=== PATIENT | male | born 1940 | race Caucasian/White ===

== ENCOUNTER → 2016-12-30 | Outpatient (CLI) | payer MEDICARE, OTHER ==
[~2016-12-30] MED LIST: LISI-594 PO
== END ==
LOC: CARD 08:04
PROVIDERS: ATTEND Internal Medicine Interventional Cardiology
DX: I10 Essential (primary) hypertension (principal); R07.9 Chest pain, unspecified

== ENCOUNTER → 2017-01-03 | Outpatient (CLI) | payer MEDICARE, OTHER ==
[~2017-01-03] VITALS: Ht 188 cm; Wt 92.5 kg
[~2017-01-03] MED LIST changes: +CATHETER FLUSH 10 ML SYR IV PRN; +REGADENOSON 0.4 MG/5 ML SYR (LEXISCAN) IV ONE
[2017-01-03 08:42] VITALS: BP 165/102
== END ==
LOC: CARD 06:37
PROVIDERS: ATTEND Internal Medicine Interventional Cardiology
DX: R07.9 Chest pain, unspecified (principal); I10 Essential (primary) hypertension
CPT/HCPCS: 78452; 93017

== ENCOUNTER → 2017-05-10 | Outpatient (CLI) | payer MEDICARE, OTHER ==
[~2017-05-10] MED LIST changes: +IOHEXOL 350 MG/ML 150 ML (OMNIPAQUE 350) VIAL IV ONE; +NS 250 ML (IVPB) BAG IV ONE; -REGADENOSON 0.4 MG/5 ML SYR (LEXISCAN) IV ONE
[2017-05-10 09:16] LABS: BUN/CREATININE RATIO 18; CREATININE SERUM 0.85 MG/DL (0.60-1.30); GFR ESTIMATED > 60
--- NOTE | 2017-05-10 10:20 | Diagnostic Imaging Report ---
PROCEDURE: CT angiography of the chest with contrast. TECHNIQUE: Multiple contiguous axial images were obtained through the chest after uneventful bolus administration of intravenous contrast. Reconstructed CTA MIP acquisitions were also performed. INDICATION: History of dilated aortic root. COMPARISON: None. FINDINGS: Ascending aorta measures at the upper limits of normal at 3.9 x 3.6 cm in diameter at the level of the pulmonary arteries. The descending thoracic aorta measures 3.2 x 3.1 cm. Main pulmonary arterial trunk measures 2.6 cm. There is no evidence of dissection or focal stenosis of the thoracic aorta. There is mild calcified aortic and coronary atherosclerosis. Heart size is within normal limits. There is no large pericardial effusion. There is a small hiatal hernia. Slightly prominent 1.2 cm lymph node is identified to the left lateral of the distal esophagus near the diaphragmatic hiatus. Otherwise, no abnormal mediastinal, perihilar, nor axillary adenopathy is seen. Evaluation of lung windows demonstrates small benign calcified granuloma within the lingula of the left upper lobe (image 123, series 2). A few punctate similar-appearing benign subpleural calcified granulomas are also noted within the right upper lobe. Noncalcified micronodules are also present on the right and are as follows: * anterior margins of the minor fissure measuring approximately 6-7 mm (image 92, series 2). * Subpleural 4 mm micronodules within the lateral segment of the right middle lobe (image 110, series 2). * 5-6 mm micronodules within the right lung base (image 127, series 2). * Finally, 5 mm juxtapleural micronodule within the medial margins of the right upper lobe (image 37, series 2). Bony structures show age-related degenerative changes of thoracic spine. No acute osseous abnormalities are identified. No lytic or blastic bony lesions are seen. Included portions of the upper abdomen are unremarkable. IMPRESSION: 1. Ascending aorta measures at the upper limits of normal. 2. Mild calcified aortic and coronary atherosclerosis. 3. Multiple right-sided pulmonary micronodules. Please see below for followup recommendations. 4. Single borderline prominent paraesophageal lymph node at the diaphragmatic hiatus. Again, followup is recommended. PULMONARY NODULE FOLLOW-UP Multiple nodules: <6 mm: * Low risk patient - no routine follow up * High risk patient - optional CT at 12 months 6-8 mm in size: * Low risk patient - Ct at 3-6 months, then consider CT at 18-24 months * High risk patient - CT at 3-6 months, then at 18-24 months >8 mm: * Low risk patient - CT at 3-6 months, then consider CT at 18-24 months * High risk patient - CT at 3-6 months, then at 18-24 months (Use most suspicious nodule as guide to management. Follow up interval may vary according to size and risk) Dictated by: Dictated on workstation # [id number]
== END ==
LOC: RAD 08:35
PROVIDERS: ATTEND Internal Medicine Interventional Cardiology
DX: I70.0 Atherosclerosis of aorta (principal); I25.10 Atherosclerotic heart disease of native coronary artery without angina pectoris; R91.8 Other nonspecific abnormal finding of lung field; Z86.79 Personal history of other diseases of the circulatory system
CPT/HCPCS: 36415; 71275; 82565; 84520

== ENCOUNTER → 2017-11-23 | Outpatient (CLI) | payer MEDICARE, OTHER ==
[~2017-11-23] MED LIST changes: -CATHETER FLUSH 10 ML SYR IV PRN; +NS 100 ML (IVPB) BAG IV ONE
[2017-11-23 10:47] LABS: BUN/CREATININE RATIO 19; CREATININE SERUM 0.88 MG/DL (0.60-1.30); GFR ESTIMATED > 60
--- NOTE | 2017-11-24 08:33 | Diagnostic Imaging Report ---
PROCEDURE: CT angiography of the chest with and without contrast. TECHNIQUE: Noncontrast CT of the chest was performed. Subsequently, after intravenous administration of contrast, thin section axial CT angiography of the chest was performed. 2D MIP reconstructions were made. INDICATION: Pulmonary nodules. Dilated aortic root. CORRELATION STUDY: 05/10/2017. FINDINGS: Thoracic aorta appears relatively unremarkable. Measurements as follows: Maximum ascending aorta: 4.1 x 3.6 cm, previously 3.9 x 3.6 cm. Descending thoracic aorta, level left main pulmonary artery: 3.3 x 3.3 cm, previously 3.2 x 3.1 cm. Main pulmonary artery: 2.7 cm, previously 2.6 cm. No intraluminal abnormality to suggest dissection. Heart size is normal. Mild scattered coronary artery calcification. No pathologically enlarged mediastinal and/or hilar lymphadenopathy. EG junction with small hiatal hernia. Small lymph nodes adjacent to the low esophagus. Short axis dimension at 7 mm. Lung tong demonstrate no infiltrate. Mild areas of peribronchial thickening are present. There are again noted several small calcified granulomas to be present. A few noncalcified micronodules are also present. Marker nodules as follows: Medial subpleural region right upper lobe 4 mm (image 33 series 2), previously 5 mm. Minor fissure plane anterior right mid lung field, 6 mm (image 88 series 2), stable. Posterolateral right middle lobe 5 mm (image 106 series 2), relatively stable. Right lower lobe inseparable from the diaphragm centrally 7 mm (image 124 series 2), previously 6 mm. Bony structures with mildly advanced degenerative changes about the thoracic spine. No acute bony abnormality or safia bony destructive change. Visualized portions of the upper abdomen demonstrate probable cysts of the left kidney. IMPRESSION: 1. Stable appearance about the ascending aortic measurements, upper limits of normal. 2. Multiple small pulmonary nodules overall appear generally stable. 3. Jjfta-yj-agcezxcs-sized hiatal hernia with wall thickening. Adjacent prominent esophageal lymph node, stable. PULMONARY NODULE FOLLOW-UP Multiple nodules: <6 mm: * Low risk patient - no routine follow up * High risk patient - optional CT at 12 months 6-8 mm in size: * Low risk patient - Ct at 3-6 months, then consider CT at 18-24 months * High risk patient - CT at 3-6 months, then at 18-24 months >8 mm: * Low risk patient - CT at 3-6 months, then consider CT at 18-24 months * High risk patient - CT at 3-6 months, then at 18-24 months (Use most suspicious nodule as guide to management. Follow up interval may vary according to size and risk). Dictated by: Dictated on workstation # [id number]
== END ==
LOC: RAD 09:33
PROVIDERS: ATTEND Internal Medicine Interventional Cardiology
DX: I77.810 Thoracic aortic ectasia (principal); R91.8 Other nonspecific abnormal finding of lung field; K44.9 Diaphragmatic hernia without obstruction or gangrene
CPT/HCPCS: 36415; 71250; 71275; 82565; 84520

== ENCOUNTER → 2018-05-17 | Outpatient (CLI) | payer MEDICARE, OTHER ==
[~2018-05-17] MED LIST changes: -IOHEXOL 350 MG/ML 150 ML (OMNIPAQUE 350) VIAL IV ONE; -NS 100 ML (IVPB) BAG IV ONE; -NS 250 ML (IVPB) BAG IV ONE
== END ==
LOC: CARD 09:43
PROVIDERS: ATTEND Internal Medicine Interventional Cardiology
DX: I77.810 Thoracic aortic ectasia (principal); I10 Essential (primary) hypertension
CPT/HCPCS: 93306

== ENCOUNTER → 2018-12-01 | Outpatient (CLI) | payer MEDICARE, OTHER ==
--- NOTE | 2018-12-01 13:10 | Diagnostic Imaging Report ---
EXAMINATION: CT Chest without contrast. TECHNIQUE: Multiple contiguous axial images were obtained through the chest without the use of intravenous contrast. All CT scans use one or more of the following dose optimizing techniques: automated exposure control, MA and/or KvP adjustment based on a patient size and exam type, or iterative reconstruction. HISTORY: PULMONARY NODULES/LESIONS COMPARISON: 11/23/2017 FINDINGS: The lungs are clear without edema or pneumonia. No pleural effusion or pneumothorax. There is a stable 6 mm fissural lymph node along the minor fissure of the right lung (series 4, image 85). There is an unchanged 4 mm right upper lobe pulmonary nodule (series 4, image 29). Heart size is normal. No pericardial effusion. Aorta is normal in caliber. There is no axillary or supraclavicular lymphadenopathy. There is no mediastinal lymphadenopathy. Limited views of the upper abdomen are unremarkable. There are no suspicious osseus lesions. IMPRESSION: 1. Small pulmonary nodules are stable and can be considered benign according to Fleischner Society guidelines.0 Dictated by: Dictated on workstation # [id number]
== END ==
LOC: RAD 12:11
PROVIDERS: ATTEND Nurse Practitioner Family
DX: R91.8 Other nonspecific abnormal finding of lung field (principal)
CPT/HCPCS: 71250

== ENCOUNTER → 2019-01-02 | Outpatient (CLI) | payer MEDICARE, OTHER | LOC: CARD 09:37 | PROVIDERS: ATTEND Internal Medicine Interventional Cardiology | DX: Z01.810 Encounter for preprocedural cardiovascular examination (principal); I77.819 Aortic ectasia, unspecified site; I10 Essential (primary) hypertension; I34.0 Nonrheumatic mitral (valve) insufficiency; R91.8 Other nonspecific abnormal finding of lung field | CPT/HCPCS: 93306 ==

== ENCOUNTER → 2019-10-15 | Outpatient (CLI) | payer MEDICARE, OTHER ==
[~2019-10-15] MED LIST changes: +CATHETER FLUSH 10 ML SYR IV PRN; +HOLD METFORMIN - RECEIVED CONTRAST 20 ML VIAL IV SCH; +IOHEXOL 350 MG/ML 100 ML (OMNIPAQUE 350) VIAL IV ONE; +NS 100 ML (IVPB) BAG IV ONE
[2019-10-15 10:55] LABS: ALBUMIN 4.2 GM/DL (3.2-4.5); CHLORIDE 105 MMOL/L (98-107); POTASSIUM 4.6 MMOL/L (3.6-5.0); SODIUM 139 MMOL/L (135-145)
[2019-10-15 10:57] LABS: CALCIUM 9.4 MG/DL (8.5-10.1)
[2019-10-15 10:58] LABS: GLUCOSE 92 MG/DL (70-105); TOTAL PROTEIN 7.2 GM/DL (6.4-8.2)
[2019-10-15 10:59] LABS: CARBON DIOXIDE 24 MMOL/L (21-32)
[2019-10-15 11:00] LABS: BILIRUBIN,TOTAL 0.7 MG/DL (0.1-1.0)
[2019-10-15 11:01] LABS: ALKALINE PHOSPHATASE 78 U/L (40-136)
[2019-10-15 11:02] LABS: CREATININE SERUM 1.02 MG/DL (0.60-1.30); GFR ESTIMATED > 60
[2019-10-15 11:03] LABS: BUN/CREATININE RATIO 18
[2019-10-15 11:04] LABS: ALANINE AMINOTRANSFERASE 15 U/L (0-55)
--- NOTE | 2019-10-15 13:03 | Diagnostic Imaging Report ---
INDICATION: Dilated aortic root. TECHNIQUE: Multiple contiguous axial images were obtained through the chest after uneventful bolus administration of intravenous contrast. 3D reconstructed CTA MIP acquisitions were also performed. Auto Exposure Controls were utilized during the CT exam to meet ALARA standards for radiation dose reduction. COMPARISON: 12/01/2018. FINDINGS: There are no enlarged mediastinal or hilar nodes. There are no enlarged axillary nodes or chest wall lesions. There is no CT evidence of pulmonary embolus. The ascending aorta measures 4 cm at the aortic root, unchanged compared to the previous study. The aortic arch measures 3.1 cm. The descending aorta measures 3.1 cm. There is no aortic dissection. There is a moderate-sized hiatal hernia. There is no pleural or pericardial fluid. The visualized portions of the upper abdomen are unremarkable. The lung parenchymal windows demonstrate some mild bibasilar scarring or atelectasis. There is no consolidation. There is a stable small 6 mm nodule along the minor fissure on the right side, unchanged from the previous study, best seen on image 88 of series 3. There is a stable small 4 mm nodule in the right upper lobe posteriorly, best seen on image 34 of series 3. IMPRESSION: Borderline prominence of the aortic root with a measurement of 4 cm. The aorta is otherwise unremarkable. No evidence of pulmonary emboli. Stable benign pulmonary nodules, unchanged over 2 years duration back to 05/10/2017. Dictated by: Dictated on workstation # [id number]
== END ==
LOC: RAD 11:15
PROVIDERS: ATTEND Internal Medicine Interventional Cardiology
DX: I77.810 Thoracic aortic ectasia (principal); R91.8 Other nonspecific abnormal finding of lung field
CPT/HCPCS: 36415; 71275; 80053

== ENCOUNTER → 2020-04-28 | Outpatient (CLI) | payer MEDICARE, OTHER ==
[~2020-04-28] MED LIST changes: -CATHETER FLUSH 10 ML SYR IV PRN; -HOLD METFORMIN - RECEIVED CONTRAST 20 ML VIAL IV SCH; -IOHEXOL 350 MG/ML 100 ML (OMNIPAQUE 350) VIAL IV ONE; -NS 100 ML (IVPB) BAG IV ONE
== END ==
LOC: CARD 09:42
PROVIDERS: ATTEND Nurse Practitioner Family
DX: I77.810 Thoracic aortic ectasia (principal); I51.7 Cardiomegaly; I34.0 Nonrheumatic mitral (valve) insufficiency
CPT/HCPCS: 93306

== ENCOUNTER → 2021-08-03 | Outpatient (CLI) | payer MEDICARE, OTHER | LOC: CARD 15:00 | PROVIDERS: ATTEND Internal Medicine Cardiovascular Disease | DX: I35.1 Nonrheumatic aortic (valve) insufficiency (principal); I51.7 Cardiomegaly | CPT/HCPCS: 93306 ==

== ENCOUNTER → 2021-08-04 | Outpatient (CLI) | payer MEDICARE, OTHER ==
[~2021-08-04] MED LIST changes: +REGADENOSON 0.4 MG/5 ML SYR (LEXISCAN) IV ONE
[2021-08-04] MEDS: CATHETER FLUSH 10 ML SYR IVP PRN ×2 (07:34→09:19)
[2021-08-04 09:17] VITALS: BP 168/109
--- NOTE | 2021-08-05 15:25 | STRESS TEST ---
DATE OF SERVICE: 08/04/2021 RESTING AND POST REGADENOSON TECHNETIUM-99M TETROFOSMIN SPECT CT IMAGING ORDERING PHYSICIAN: Dr. Kothari. PRIMARY PHYSICIAN: Dr. Dennis. CLINICAL DIAGNOSIS: Fatigue. Baseline images were carried out after injection of 9.86 mCi of technetium-99m Tetrofosmin. This was followed by 0.4 mg regadenoson and 28.8 mCi of technetium-99m Tetrofosmin for stress imaging. The electrocardiogram showed sinus rhythm at baseline. It did not change significantly with the regadenoson infusion. Review of images at rest and following stress indicate somewhat diminished count uptake in the diaphragmatic wall of the left ventricle, both at rest and following regadenoson infusion. This appears to be a diaphragmatic attenuation. Gated images show normal regional wall motion, including the diaphragmatic wall of the left ventricle. Corrected images do not exhibit any defects. Thus, there does not appear to be evidence of significant myocardial ischemia or infarction. CONCLUSIONS: 1. No evidence of any significant myocardial ischemia or infarction on this study. 2. Normal regional wall motion. 3. Normal global left ventricular systolic function with a calculated ejection fraction of 62%. Job ID: [id number] DocumentID: [id number] Dictated Date: 08/05/2021 09:31:18 Business Account Manager Date: 08/05/2021 15:24:03 Dictated By: MILA KOTHARI MD, MA, FACP, FACC,
== END ==
LOC: CARD 07:30
PROVIDERS: ATTEND Internal Medicine Cardiovascular Disease
DX: R53.83 Other fatigue (principal)
CPT/HCPCS: 78452; 93017; A9502

== ENCOUNTER → 2021-08-26 | Outpatient (CLI) | payer MEDICARE, OTHER ==
[~2021-08-26] MED LIST changes: +HOLD METFORMIN - RECEIVED CONTRAST 20 ML VIAL IV SCH; +IOHEXOL 350 MG/ML 100 ML (OMNIPAQUE 350) VIAL IV ONE; +NS 100 ML (IVPB) BAG IV ONE; -REGADENOSON 0.4 MG/5 ML SYR (LEXISCAN) IV ONE
[2021-08-26 11:07] LABS: CALCIUM 9.6 MG/DL (8.5-10.1); CREATININE SERUM 0.94 MG/DL (0.60-1.30); POTASSIUM 3.8 MMOL/L (3.6-5.0)
--- NOTE | 2021-08-26 13:10 | Diagnostic Imaging Report ---
PROCEDURE: CT angiography of the chest with contrast. TECHNIQUE: Multiple contiguous axial images were obtained through the chest after uneventful bolus administration of intravenous contrast. 3D reconstructed CTA MIP acquisitions were also performed. Auto Exposure Controls were utilized during the CT exam to meet ALARA standards for radiation dose reduction. INDICATION: Aortic root dilatation. Compared with CT anterior chest 10/15/2019. FINDINGS: Aortic root at the sinotubular junction 4.1 cm today, previously 4.0 cm. Ascending aorta 3.9 cm today, when I measure the prior at the same level this is unchanged. No mural hemorrhage, dissection or rupture. Arch and descending thoracic aorta stable in caliber and showing normal distal tapering. Heart is enlarged. There is a tiny pericardial effusion or pleural effusion. There is mild subpleural scarring in the pulmonary apices chronic. No evidence for edema or pneumonia. No lung mass. No adenopathy. There is a small hiatal hernia chronic upper abdomen shows patent nonaneurysmal abdominal aorta and nonobstructing right lower pole renal calculi with bilateral renal cysts. IMPRESSION: A root dilatation 4.1 cm at the sinotubular junction without mural hemorrhage dissection or rupture. Stable caliber of the ascending aorta arch and descending thoracic aortas which showed normal distal tapering. No acute pathology. Dictated by: Dictated on workstation # [id number]
== END ==
LOC: RAD 11:45
PROVIDERS: ATTEND Nurse Practitioner Family
DX: I77.810 Thoracic aortic ectasia (principal)
CPT/HCPCS: 36415; 71275; 80048

== ENCOUNTER 2022-09-22 09:19 | Inpatient (IN) | payer MEDICARE, OTHER ==
[2022-09-22] VITALS (13 sets, daily range): BP systolic 138–185; BP diastolic 77–112
[~2022-09-22] VITALS: Ht 187 cm; Wt 86.0 kg
[~2022-09-22 09:19] MED LIST changes: -HOLD METFORMIN - RECEIVED CONTRAST 20 ML VIAL IV SCH; -IOHEXOL 350 MG/ML 100 ML (OMNIPAQUE 350) VIAL IV ONE; -NS 100 ML (IVPB) BAG IV ONE
--- NOTE | 2022-09-22 09:33 | ED Cardiac General ---
History of Present Illness General Chief Complaint: Chest Pain Stated Complaint: CHEST PAINS Nursing Triage Note: CHEST PAIN STARTED ON TUESDAY AND TODAY HAS TINGLING IN HIS LEFT ARM. PAIN IS INTERMITTANT. Source: patient, family Exam Limitations: no limitations History of Present Illness Date Seen by Provider: Sep 22, 2022 Time Seen by Provider: 09:20 Initial Comments 82-year-old male with past medical history most notable for hypertension and hyperlipidemia coming in due to chest pain. This started on Tuesday, intermittent, mostly constant. Started up again around 5 AM this morning and was constant, stopped shortly prior to arrival, and he is currently chest pain- free. Is on the left side of his chest radiating to his left shoulder, more like a pinch. He states the left side of his chest felt a little tingly at times. He is never really had symptoms like this before. Denies any cardiac history including no stents. Denies any lower extremity swelling or pain, no hemoptysis, no recent surgery, no hormone use, no shortness of breath or fever. He is otherwise denying any other acute complaints. He did take a full dose aspirin this morning. 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 Allergies and Home Medications Allergies Coded Allergies: No Known Drug Allergies (Unverified , 12/07/12) Patient Home Medication List Home Medication List Reviewed: Yes Lisinopril (Zestril) 5 Mg Tablet, 5 MG PO DAILY, (Reported) Entered as Reported by: NAOMY MELARA on 12/07/12 1828 Review of Systems Review of Systems Constitutional: No fever EENTM: No Symptoms Reported Respiratory: No Symptoms Reported Cardiovascular: See HPI Gastrointestinal: No Symptoms Reported Genitourinary: No Symptoms Reported Musculoskeletal: no symptoms reported Skin: no symptoms reported Psychiatric/Neurological: No Symptoms Reported Endocrine: No Symptoms Reported Past Srvmjcf-Imnnno-Aaukjf Hx Patient Social History Tobacco Use?: No Use of E-Cig and/or Vaping dev: No Substance use?: No Alcohol Use?: No Pt feels they are or have been: No Immunizations Up To Date Tetanus Booster (TDap): Less than 5yrs PED Vaccines UTD: No Past Medical History Reproductive Disorders: No Sexually Transmitted Disease: No HIV/AIDS: No Cataract Loss of Vision: Denies Hearing Impairment: Denies Prostate Adverse Reaction/Blood Tranf: No Physical Exam Vital Signs Vital Signs - First Documented 09/22/22 09:21 Temp 37.1 Pulse 73 Resp 18 B/P (MAP) 174/107 (129) Pulse Ox 96 O2 Delivery Room Air Capillary Refill : Less Than 3 Seconds Height, Weight, BMI Height: 6'2.00" Weight: 204lbs. 0.0oz. 92.380156xc; 24.00 BMI Method: General Appearance: No Apparent Distress, WD/WN HEENT: PERRL/EOMI, Normal ENT Inspection, Pharynx Normal Neck: Full Range of Motion, Normal Inspection, Non Tender, Supple Respiratory: Chest Non Tender, Lungs Clear, Normal Breath Sounds, No Accessory Muscle Use, No Respiratory Distress Cardiovascular: Regular Rate, Rhythm, No Edema Gastrointestinal: Normal Bowel Sounds, Non Tender, Soft; No Distended, No Guarding Extremity: Normal Capillary Refill, Normal Inspection, Normal Range of Motion, Non Tender, No Calf Tenderness, No Pedal Edema Neurologic/Psychiatric: Alert, Oriented x3, No Motor/Sensory Deficits, Normal Mood/Affect Skin: Normal Color, Warm/Dry Progress/Results/Core Measures Results/Orders Lab Results Laboratory Tests Test 09/22/22 09:35 Range/Units White Blood Count 5.3 4.3-11.0 10^3/uL Red Blood Count 5.08 4.30-5.52 10^6/uL Hemoglobin 15.8 13.3-17.7 g/dL Hematocrit 48 40-54 % Mean Corpuscular Volume 95 80-99 fL Mean Corpuscular Hemoglobin 31 25-34 pg Mean Corpuscular Hemoglobin Concent 33 32-36 g/dL Red Cell Distribution Width 14.0 10.0-14.5 % Platelet Count 206 130-400 10^3/uL Mean Platelet Volume 8.6 L 9.0-12.2 fL Immature Granulocyte % (Auto) 0 % Neutrophils (%) (Auto) 77 H 42-75 % Lymphocytes (%) (Auto) 12 12-44 % Monocytes (%) (Auto) 9 0-12 % Eosinophils (%) (Auto) 1 0-10 % Basophils (%) (Auto) 1 0-10 % Neutrophils # (Auto) 4.1 1.8-7.8 10^3/uL Lymphocytes # (Auto) 0.6 L 1.0-4.0 10^3/uL Monocytes # (Auto) 0.5 0.0-1.0 10^3/uL Eosinophils # (Auto) 0.1 0.0-0.3 10^3/uL Basophils # (Auto) 0.0 0.0-0.1 10^3/uL Immature Granulocyte # (Auto) 0.0 0.0-0.1 10^3/uL Prothrombin Time 14.3 12.2-14.7 SEC INR Comment 1.1 0.8-1.4 Activated Partial Thromboplast Time 28 24-35 SEC D-Dimer 0.35 0.00-0.49 UG/ML Sodium Level 142 135-145 MMOL/L Potassium Level 4.1 3.6-5.0 MMOL/L Chloride Level 109 H 98-107 MMOL/L Carbon Dioxide Level 22 21-32 MMOL/L Anion Gap 11 5-14 MMOL/L Blood Urea Nitrogen 18 7-18 MG/DL Creatinine 0.96 0.60-1.30 MG/DL Estimat Glomerular Filtration Rate 78 BUN/Creatinine Ratio 19 Glucose Level 100 70-105 MG/DL Calcium Level 9.5 8.5-10.1 MG/DL Corrected Calcium 9.3 8.5-10.1 MG/DL Magnesium Level 2.3 1.6-2.4 MG/DL Total Bilirubin 0.8 0.1-1.0 MG/DL Aspartate Amino Transf (AST/SGOT) 20 5-34 U/L Alanine Aminotransferase (ALT/SGPT) 17 0-55 U/L Alkaline Phosphatase 80 40-136 U/L Troponin I 0.035 H <0.028 NG/ML B-Type Natriuretic Peptide 64.5 <100.0 PG/ML Total Protein 7.5 6.4-8.2 GM/DL Albumin 4.3 3.2-4.5 GM/DL Lipase 21 8-78 U/L My Orders Orders - RONNY PECK MD Ekg Tracing (09/22/22 09:20) Cbc With Automated Diff (09/22/22:27) Magnesium (09/22/22 09:27) Chest 1 View, Ap/Pa Only (09/22/22:) Comprehensive Metabolic Panel (09/22/22 09:) Protime With Inr (09/22/22 09:27) Partial Thromboplastin Time (09/22/22 09:27) O2 (8/9/23 09:27) Monitor-Rhythm Ecg Trace Only (09/22/22 09:27) Ed Iv/Invasive Line Start (09/22/22 09:27) Lipase (09/22/22:27) Bnp Kika (09/22/22 09:27) Troponin I Kika (09/22/22 09:27) Fibrin Degradation Products (09/22/22 09:34) Clopidogrel Tablet (Clopidogrel Tablet) (09/22/22 10:30) Metoprolol Succinate (Xl) Tab (Toprol Xl (09/22/22 10:30) Enoxaparin Injection (Enoxaparin Injecti (09/22/22 10:30) Vital Signs/I&O 09/22/22 09:21 Temp 37.1 Pulse 73 Resp 18 B/P (MAP) 174/107 (129) Pulse Ox 96 O2 Delivery Room Air Blood Pressure Mean: 129 Progress Progress Note : Progress Note 82-year-old male with above history coming in due to chest pain. ABCs were intact and vitals were stable on presentation although he is hypertensive. Patient is pain-free on arrival here which is reassuring. EKG ordered and interpreted by me showing no STEMI, but he is having frequent PVCs. He is not feeling these PVCs and they are asymptomatic. He has already received full dose aspirin today. An IV was placed and basic labs were obtained including cardiac biomarkers. White blood cell count normal, hemoglobin normal, creatinine normal, potassium and magnesium normal, troponin slightly elevated, D-dimer negative. Since this pain has been ongoing off and on since Tuesday, its potential there was already an event. Clinically no signs of DVT or PE and with a negative D-dimer that also makes aortic dissection very unlikely. Chest x-ray ordered and interpreted by me showing no pneumothorax and normal cardiac silhouette with a normal mediastinum as well. I have reviewed the patient's chart, and in July 2021 he had a stress test and an echocardiogram done which were essentially unremarkable. I contacted Dr. Kothari who gave recommendations and on likely will take the patient to the [facility] sometime soon. I then contacted Dr. Alvarez who admit the patient to the cardiac stepdown for further evaluation and management. Initial ECG Impression Date: Sep 22, 2022 Initial ECG Impression Time: : Initial ECG Rate: 74 Initial ECG Rhythm: Normal Sinus Comment Narrow QRS, borderline left axis deviation, no significant ST changes or T wave abnormalities, frequent PVCs Diagnostic Imaging Diagonstic Imaging: Xray (chest) Comments [facility] [place], [place] NAME: DANIEL SMALLWOOD [facility] REC#: [id number] PT STATUS: REG ER : 1940 PHYSICIAN: RONNY PECK MD ADMIT DATE: 09/22/22/ER Draft Date of Exam:09/22/22 CHEST 1 VIEW, AP/PA ONLY INDICATION: Chest pain. EXAMINATION: Portable chest at 9:39 AM. FINDINGS: The heart and mediastinum are normal. The lungs are clear. There are no effusions or pneumothoraces. IMPRESSION: No acute abnormalities in the chest. Dictated on workstation # [id number] Dict: 09/22/22 [id number] Trans: 09/22/22 0954 [id number] Interpreted by: MAJOR ANAYA MD Electronically signed by: Departure Impression Primary Impression: NSTEMI (non-ST elevated myocardial infarction) Disposition: ADMITTED INPATIENT Condition: Stable Admissions Decision to Admit Reason: Admit from ER (General) Decision to Admit/Date: Sep 22, 2022 Time/Decision to Admit Time: 10:25 Departure-Patient Inst. Referrals: ROSAS ENGLISH MD (PCP/Family) Primary Care Physician RONNY PECK MD Sep 22, 2022 09:33
[2022-09-22 09:46] LABS: BASOPHILS % (AUTO) 1 % (0-10); EOSINOPHILS # (AUTO) 0.1 10^3/uL (0.0-0.3); EOSINOPHILS % (AUTO) 1 % (0-10); HEMATOCRIT 48 % (40-54); HEMOGLOBIN 15.8 g/dL (13.3-17.7); LYMPHOCYTES # (AUTO) 0.6 10^3/uL (1.0-4.0); LYMPHOCYTES % (AUTO) 12 % (12-44); MEAN CORPUSCULAR HEMOGLOBIN 31 pg (25-34); MEAN CORPUSCULAR HGB CONC 33 g/dL (32-36); MEAN CORPUSCULAR VOLUME 95 fL (80-99); MEAN PLATELET VOLUME 8.6 fL (9.0-12.2); MONOCYTES # (AUTO) 0.5 10^3/uL (0.0-1.0); MONOCYTES % (AUTO) 9 % (0-12); NEUTROPHILS # (AUTO) 4.1 10^3/uL (1.8-7.8); NEUTROPHILS % (AUTO) 77 % (42-75); PLATELET COUNT 206 10^3/uL (130-400); WHITE BLOOD COUNT 5.3 10^3/uL (4.3-11.0)
--- NOTE | 2022-09-22 09:54 | Diagnostic Imaging Report ---
INDICATION: Chest pain. EXAMINATION: Portable chest at 9:39 AM. FINDINGS: The heart and mediastinum are normal. The lungs are clear. There are no effusions or pneumothoraces. IMPRESSION: No acute abnormalities in the chest. Dictated by: Dictated on workstation # [id number]
[2022-09-22 09:57] LABS: ALBUMIN 4.3 GM/DL (3.2-4.5)
[2022-09-22 09:58] LABS: POTASSIUM 4.1 MMOL/L (3.6-5.0)
[2022-09-22 09:59] LABS: CALCIUM 9.5 MG/DL (8.5-10.1)
[2022-09-22 10:00] LABS: INR 1.1 (0.8-1.4); PROTHROMBIN TIME PATIENT 14.3 SEC (12.2-14.7); TOTAL PROTEIN 7.5 GM/DL (6.4-8.2)
[2022-09-22 10:02] LABS: BILIRUBIN,TOTAL 0.8 MG/DL (0.1-1.0)
[2022-09-22 10:04] LABS: CREATININE SERUM 0.96 MG/DL (0.60-1.30)
[2022-09-22 10:06] LABS: FIBRIN DEGRADATION PRODUCTS 0.35 UG/ML (0.00-0.49); MAGNESIUM 2.3 MG/DL (1.6-2.4)
[2022-09-22] MEDS ORDERED: ENOXAPARIN 100 MG/1 ML SYRINGE SC ONE (10:30)
[2022-09-22] MEDS ORDERED: CLOPIDOGREL 300 MG TABLET PO ONE (10:30)
[2022-09-22] MEDS ORDERED: PATIENT MAY USE OWN MEDS, ALL PO SCH (12:00)
[2022-09-22] MEDS ORDERED: morphine INJ 4 MG/ML 1 ML (VIAL/SYRINGE) IV PRN (12:00)
[2022-09-22] MEDS ORDERED: ONDANSETRON 4 MG/2 ML (SDV) Z0FRAN IVP PRN (12:00)
[2022-09-22] MEDS ORDERED: NITROGLYCERIN 0.4 MG SL TABS BTL 25'S SL PRN (12:15)
--- NOTE | 2022-09-22 13:02 | History & Physical-Hospitalist ---
VARSHA BRADY 09/22/22 1302: History of Present Illness HPI/Chief Complaint Lico Jacobo is a 82 yo male with a history of HTN, who presented to the ED this morning with chest pain that has been intermittent since 09/19. He had chest pain this morning starting at 5 AM which was constant, but resolved before his arrival to the ED. He took a full aspirin dose this morning. He doesn't have any chest pain, shortness of breath, or palpitations at this time. His EKG was unremarkable except for some asymptomatic PVCs. Labs today show an elevated troponin at 0.035 with normal BNP, creatinine, and D-dimer. He had an elevated BP of 174/107 on arrival to the ED, which his family attribute to white coat syndrome. His BP is now 150/105. He doesn't report any history of cardiac events and does not have any stents. He has had episodes of chest pain in the past, and his last stress test and echo in July 2021 were unremarkable. Date Seen 09/22/22 Time Seen by a Provider: 12:30 Attending Physician Ana Paula Dennis MD PCP Admitting Physician: Andreas Alvarez MD Attending Physician: Andreas Alvraez MD Referring Physician Date of Admission Sep 22, 2022 at 11:18 Home Medications & Allergies Home Medications Reviewed patient Home Medication Reconciliation performed by pharmacy medication reconciliations accessibility lift technician and/or nursing. Patients Allergies have been reviewed. Allergies Allergies Coded Allergies No Known Drug Allergies (Xzhjzvyphp04/24/13) Past [id number]-Vuoltc Hx Patient Social History Marrital Status: Tobacco Use?: No Use of E-Cig and/or Vaping dev: No Substance use?: No Alcohol Use?: No Pt feels they are or have been: No Immunizations Up To Date Date of Influenza Vaccine: Nov 15, 2011 First/Initial COVID19 Vaccinat: "3 SHOTS" Hepatitis A: No Hepatitis B: No PED Vaccines UTD: No Date of Pneumonia Vaccine: Nov 14, 2010 Current Status Advance Directives: No Advance Directive Location: PATIENT VERBALIZES HE WANTS TO BE A FULL CODE Communicates: Verbally Primary Language: Italian Preferred Spoken Language: Italian Is interpretation needed?: No Sensory deficits: Speech impairment Implanted or Applied Medical D: None Past Medical History Hypertension Sexually Transmitted Disease: No HIV/AIDS: No Cataract Loss of Vision: Denies Hearing Impairment: Denies Prostate Adverse Reaction/Blood Tranf: No Review of Systems Constitutional: no symptoms reported Respiratory: no symptoms reported; No dyspnea on exertion Cardiovascular: see HPI Gastrointestinal: no symptoms reported Physical Exam Physical Exam Vital Signs Vital Signs - First Documented 09/22/22 09:21 Temp 37.1 Pulse 73 Resp 18 B/P (MAP) 174/107 (129) Pulse Ox 96 O2 Delivery Room Air Capillary Refill : Less Than 3 Seconds Height, Weight, BMI Height: 6'2.00" Weight: 204lbs. 0.0oz. [id number]; 24.59 BMI Method: General Appearance: No Apparent Distress, WD/WN HEENT: PERRL/EOMI Neck: Non Tender, Supple Respiratory: Chest Non Tender, Lungs Clear, Normal Breath Sounds, No Accessory Muscle Use, No Respiratory Distress Cardiovascular: Regular Rate, Rhythm, No Edema, No Gallop, No JVD, No Murmur Gastrointestinal: Normal Bowel Sounds, No Organomegaly, No Pulsatile Mass, Non Tender, Soft Neurologic/Psychiatric: Alert, Oriented x3, Normal Mood/Affect Skin: Normal Color, Warm/Dry Results Results/Procedures Labs Laboratory Tests 09/22/22 09:35 Patient resulted labs reviewed. 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 Patient NPO Lovenox 90 mg, Metoprolol 25 mg, and Plavix 300 mg given in ED Nitroglycerin PRN Check lipid panel in the morning Clinical Quality Measures AMI/AHF: ASA po Prior to arrival: ANDREAS Chance MD 09/25/22 1149: Supervisory-Addendum Brief Verification & Attestation Participated in pt care: history, MDM, physical Personally performed: exam, history, MDM, supervision of care Care discussed with: Medical Student Procedures: n/a Results interpretation: Verified all documentation Verification and Attestation of Medical Student E/M Service A medical student performed and documented this service in my presence. I reviewed and verified all information documented by the medical student and made modifications to such information, when appropriate. I personally performed the physical exam and medical decision making. Andreas Alvarez, Sep 25, 2022,11:49 VARSHA BRADY Sep 22, 2022 13:02 ANDREAS ALVAREZ MD Sep 25, 2022 11:49
--- NOTE | 2022-09-22 13:20 | Consultation-Cardiology ---
HPI-Cardiology Cardiology Consultation: Date of Consultation 09/22/22 Time Seen by a Provider: 12:50 Date of Admission Attending Physician Ana Paula Dennis MD Admitting Physician Admitting Physician: Jennifer Alvarez MD Attending Physician: Jennifer Alvarez MD Consulting Physician MILA PATTERSON MD, MA, FACP, FACC, FSCAI, CCDS Physician requesting consult: Dr Alvarez HPI: Chief Complaint: Chest discomfort 82 yo man chest discomfort: onset on Sep 19, 2022: mild, L chest, w/o radiation, feeling of pinching, w/o associated features, lasting several hours, w/o aggravating or relieving factors. He decided to come in to the ER today. EKG did not show ac ishemia but troponin was minimally elevated. Admitted. Currently without any symptoms. Does not report shortness of breath or palp or syncope or n/v/d or leg swelling Review of Systems-Cardiology Review of Systems Constitutional: No malaise, No weight loss, No weight gain Eyes: No vision change Ears/Nose/Throat: No ear discharge, No nasal drainage, No recent hearing loss Respiratory: As described under HPI Cardiovascular: As described under HPI Gastrointestinal: As described under HPI Genitourinary: No dysuria, No hematuria, No urine frequency changes Musculoskeletal: No back pain, No joint pain Skin: No rash, No ulcerations Psychiatric/Neurological: No seizure, No focal weakness, No syncope Hematologic: No bleeding abnormalities [id number]-Blolko Hx Patient Social History Smoking Status: Never a Smoker Alcohol Use?: No Pt feels they are or have been: No Immunizations Up To Date Tetanus Booster (TDap): Less than 5yrs Date of Pneumonia Vaccine: Nov 14, 2010 Date of Influenza Vaccine: Nov 15, 2011 Past Medical History PMH As described under Assessment. Family Medical History Family Medical History: He does not report fam h/o early CAD or SCD Allergies and Home Medications Allergies Coded Allergies: No Known Drug Allergies (Unverified , 12/07/12) Patient Home Medication List Home Medication List Reviewed: Yes Lisinopril (Zestril) 5 Mg Tablet, 5 MG PO DAILY, (Reported) Entered as Reported by: NAOMY MELARA on 12/07/12 7090 Physical Exam-Cardiology Physical Exam Vital Signs/I&O 09/22/22 09/22/22 09/22/2209/22/23 09:21 11:16 11:45 11:47 Temp 37.1 37.1 Pulse 73 61 67 67 Resp 18 20 B/P (MAP) 174/107 (129) 150/105 182/101 (128) Pulse Ox 96 96 O2 Delivery Room Air Room Air Room Air 09/22/22 09/22/22 09/22/22 09/22/22 12:00 12:15 12:30 12:45 Pulse 65 64 62 61 Resp 26 18 18 21 B/P (MAP) 173/111 (131) 166/105 (125) 164/106 (125) 165/104 (124) Pulse Ox 98 97 97 98 O2 Delivery Room Air Room Air Room Air Room Air 09/22/22 09/22/22 12:54 13:00 Pulse 61 63 Resp 19 B/P (MAP) 179/112 (134) Pulse Ox 97 O2 Delivery Room Air Capillary Refill : Less Than 3 Seconds Constitutional: AAO x 3, well-developed, well-nourished HEENT: EOMI, hearing is well preserved; No xanthelasmas are seen Neck: carotid pulses are 2 + bilaterally, with good upstrokes Respiratory: No accessory muscle use; chest expansion is symmetric, chest is bilaterally symmetric, other (good, bilat air entry) Cardiovascular: regular rate-rhythm, S1 and S2, systolic murmur (soft GIULIANA at card base) Gastrointestinal: No tender; soft; No guarding, No rebound; audible bowel sounds Extremities: No clubbing, No cyanosis, No significant edema Neurologic/Psychiatric: oriented x 3, other (moves all limbs equally) Skin: warm/dry; No cyanosis, No cool, No diaphoresis, No rash on exposed areas, No ulcerations on exposed areas Data Review Labs Laboratory Tests 09/22/22 09:35: White Blood Count 5.3, Red Blood Count 5.08, Hemoglobin 15.8, Hematocrit 48, Mean Corpuscular Volume 95, Mean Corpuscular Hemoglobin 31, Mean Corpuscular Hemoglobin Concent 33, Red Cell Distribution Width 14.0, Platelet Count 206, Mean Platelet Volume 8.6L, Immature Granulocyte % (Auto) 0, Neutrophils (%) (Auto) 77H, Lymphocytes (%) (Auto) 12, Monocytes (%) (Auto) 9, Eosinophils (%) (Auto) 1, Basophils (%) (Auto) 1, Neutrophils # (Auto) 4.1, Lymphocytes # (Auto) 0.6L, Monocytes # (Auto) 0.5, Eosinophils # (Auto) 0.1, Basophils # (Auto) 0.0, Immature Granulocyte # (Auto) 0.0, Prothrombin Time 14.3, INR Comment 1.1, Activated Partial Thromboplast Time 28, D-Dimer 0.35, Sodium Level 142, Potassium Level 4.1, Chloride Level 109H, Carbon Dioxide Level 22, Anion Gap 11, Blood Urea Nitrogen 18, Creatinine 0.96, Estimat Glomerular Filtration Rate 78, BUN/Creatinine Ratio 19, Glucose Level 100, Calcium Level 9.5, Corrected Calcium 9.3, Magnesium Level 2.3, Total Bilirubin 0.8, Aspartate Amino Transf (AST/SGOT) 20, Alanine Aminotransferase (ALT/SGPT) 17, Alkaline Phosphatase 80, Troponin I 0.035H, B-Type Natriuretic Peptide 64.5, Total Protein 7.5, Albumin 4.3, Lipase 21 09/22/22 12:07: Troponin I < 0.028 Laboratory Tests 09/22/22 09:35 A/P-Cardiology Assessment/Admission Diagnosis Chest discomfort of undetermined etiology - no distinct evidence of ACS so far: Troponin 0.035, <0.028 Mild aortic root enlargement - Echocardiogram on 11/23/[address] Chavira which showed normal LV size and function with an EF of 55-60 percent. Mild concentric LVH is noted. There is mild RV enlargement. Normal RV function. There is mild dilated aortic root with diameter of 4.26 cm. There is no significant valvular heart disease. - CT angiography done 11/23/[address] Chavira showed maximum ascending aorta diameter of 4.1 cm - Echo of 08-03-21: LVEF 55-60%; mild AoR; PASP 30-35mmHg. mod aortic root and ascending aorta enlargement - CTA of the chest from 08-26-21: A root dilatation 4.1 cm at the sinotubular junction without mural hemorrhage dissection or rupture. Stable caliber of the ascending aorta arch and descending thoracic aortas which showed normal distal tapering. No acute pathology HTN with component of white coat HTN - fair control - MPI 08-04-21 showed No evidence of any significant myocardial ischemia or infarction on this study. Normal regional wall motion. Normal global left ventricular systolic function with a calculated ejection fraction of 62%. Discussion and Recomendations * Treat with bb and valsartan and aspirin * Also enoxaparin for now * Serial cardiac enzymes and ECGs * Monitor labs * Further recs based on hosp course Clinical Quality Measures AMI/AHF: ASA po Prior to arrival: MILA Baptiste MD [facility] Sep 22, 2022 13:19
[2022-09-22] MEDS ORDERED: VALSARTAN 80 MG (DIOVAN) TAB PO NR (13:30)
[2022-09-22] MEDS ORDERED: VALS160T29 PO (14:37)
[2022-09-22] MEDS ORDERED: ASPI325T32 PO (14:37)
[2022-09-22] MEDS ORDERED: METO50TA7 PO (14:37)
[2022-09-22] MEDS ORDERED: ONDANSETRON 4 MG/2 ML (SDV) Z0FRAN IV PRN (15:00)
[2022-09-22] MEDS ORDERED: BENZONATATE 100 MG CAPSULE PO PRN (15:00)
[2022-09-22] MEDS ORDERED: ANTACID SUSP 30 ML UDC (MYLANTA) PO PRN (15:00)
[2022-09-22] MEDS ORDERED: ACETAMINOPHEN 500 MG TABLET PO PRN (15:00)
[2022-09-22] MEDS ORDERED: MELATONIN 3 MG TABLET PO PRN (15:00)
[2022-09-22] MEDS ORDERED: MILK OF MAGNESIA 400 MG/5 ML 30 ML UDC PO PRN (15:00)
[2022-09-22] MEDS ORDERED: ENOXAPARIN 100 MG/1 ML SYRINGE SQ SCH (23:00)
[2022-09-23] VITALS: BP 130/87
[2022-09-23 03:50] VITALS: BP 133/93
[2022-09-23 04:46] LABS: HEMATOCRIT 45 % (40-54); HEMOGLOBIN 15.3 g/dL (13.3-17.7); MEAN CORPUSCULAR HEMOGLOBIN 32 pg (25-34); MEAN CORPUSCULAR HGB CONC 34 g/dL (32-36); MEAN CORPUSCULAR VOLUME 93 fL (80-99); MEAN PLATELET VOLUME 9.1 fL (9.0-12.2); PLATELET COUNT 210 10^3/uL (130-400); WHITE BLOOD COUNT 5.1 10^3/uL (4.3-11.0)
[2022-09-23 05:07] LABS: CREATININE SERUM 0.87 MG/DL (0.60-1.30); POTASSIUM 4.1 MMOL/L (3.6-5.0)
[2022-09-23 07:54] VITALS: BP 171/90
[2022-09-23] MEDS ORDERED: VALSARTAN 80 MG (DIOVAN) TAB PO SCH (09:00)
[2022-09-23] MEDS ORDERED: ASPIRIN enteric coated 81MG TABLET PO SCH (09:00)
--- NOTE | 2022-09-23 09:37 | Discharge Inst-Simple/Standard ---
Discharge Inst-Standard Patient Instructions/Follow Up Plan of Care/Instructions/FU: Please continue to take your medications as written. Please follow up with your primary care doctor to follow up this hospital stay. Activity as Tolerated: Yes Discharge Diet: Cardiac Diet Return to The Hospital For: Chest pain, shortness of breath, fever, weakness, if you feel you are getting worse. ANDREAS PETERSEN MD Sep 23, 2022 09:37
--- NOTE | 2022-09-23 09:40 | Discharge Summary ---
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 Patient NPO Lovenox 90 mg, Metoprolol 25 mg, and Plavix 300 mg given in ED Nitroglycerin PRN Check lipid panel in the morning Discharge Summary Discharge Physical Exam Allergies: Coded Allergies: No Known Drug Allergies (Unverified , 12/07/12) Vitals & I&Os Vital Signs Date Time Temp Pulse Resp B/P (MAP) Pulse Ox O2 Delivery O2 Flow Rate FiO2 09/23/22 10:26 70 152/102 95 Room Air 09/23/22 07:54 36.1 12 General Appearance: No Apparent Distress Respiratory: Lungs Clear Cardiovascular: Regular Rate, Rhythm Gastrointestinal: Normal Bowel Sounds, Soft Neurologic/Psychiatric: Alert, Oriented x3 Hospital Course Patient is an 82-year-old with past medical history of hypertension who presented to the emergency department due to chest pain. He was found to have a mildly elevated troponin and was admitted for further evaluation. Cardiology was consulted. His troponin actually returned to normal on his second check and symptoms resolved. He was quite hypertensive on arrival. Symptoms are likely due to hypertension. Cardiology recommended outpatient follow-up. He was discharged home in stable and improved condition. I called and spoke with Dr. ENGLISH's office and left a message with Jossie regarding this admission. He should follow-up with Dr. ENGLISH in the next 1 to 2 weeks as well. Labs (last 24 hrs) Patient resulted labs reviewed. Pending Labs Discussion & Recommendations Discharge Planning: >30 minutes discharge planning Discharge Home Medications: Active Scripts Active Reported Aspirin EC (Aspirin) 325 Mg Tablet. 325 Mg PO DAILY Metoprolol Succinate 50 Mg Tab.er.24h 50 Mg PO DAILY Valsartan 160 Mg Tablet 160 Mg PO DAILY Instructions to patient/family Please see electronic discharge instructions given to patient. Clinical Quality Measures AMI/AHF: ASA po Prior to arrival: No Problem Qualifiers (1) HTN (hypertension): Hypertension type: primary hypertension Qualified Codes: I10 - Essential (primary) hypertension ANDREAS PETERSEN MD Sep 23, 2022 09:40
[2022-09-23 10:26] VITALS: BP 152/102
--- NOTE | 2022-09-23 13:07 | Progress Note - Cardiology ---
Cardiology SOAP Progress Note Subjective: No cp. Chest soreness that had been present for several days has resolved completely. He thinks it was from lifting heavy objects No shortness of breath or palp or syncope No leg swelling No gen weakness No focal weakness No n/v/d Wishes to go home Objective: I&O/Vital Signs 09/23/22 09/23/22 09/23/22 09/23/22 03:50 06:54 07:54 08:00 Temp 36.2 36.1 Pulse 53 80 69 Resp 18 12 B/P (MAP) 133/93 (106) 171/90 (117) Pulse Ox 93 94 96 O2 Delivery Room Air Room Air 09/23/22 10:26 Pulse 70 B/P (MAP) 152/102 Pulse Ox 95 O2 Delivery Room Air 09/23/22 00:00 Intake Total 1000 ml Output Total 450 ml Balance 550 ml Weight (Pounds): 204 Weight (Ounces): 0.0 Weight (Calculated Kilograms): [id number] Constitutional: AAO x 3, well-developed, well-nourished Respiratory: No accessory muscle use; chest expansion is symmetric, chest is bilaterally symmetric, other (good, bilat air entry) Cardiovascular: regular rate-rhythm, S1 and S2, systolic murmur (soft GIULIANA at card base) Gastrointestional: No tender; soft; No guarding, No rebound; audible bowel sounds Extremities: No clubbing, No cyanosis, No significant edema Neurologic/Psychiatric: oriented x 3, other (moves all limbs equally) Skin: warm/dry; No cyanosis, No cool, No diaphoresis, No rash on exposed areas, No ulcerations on exposed areas Results/Procedures: Labs Laboratory Tests 09/22/22 18:02: Troponin I < 0.028 09/23/22 04:38: White Blood Count 5.1, Red Blood Count 4.86, Hemoglobin 15.3, Hematocrit 45, Mean Corpuscular Volume 93, Mean Corpuscular Hemoglobin 32, Mean Corpuscular Hemoglobin Concent 34, Red Cell Distribution Width 13.8, Platelet Count 210, Mean Platelet Volume 9.1, Sodium Level 140, Potassium Level 4.1, Chloride Level 109H, Carbon Dioxide Level 23, Anion Gap 8, Blood Urea Nitrogen 16, Creatinine 0.87, Estimat Glomerular Filtration Rate 85, BUN/Creatinine Ratio 18, Glucose Level 92, Calcium Level 9.0, Triglycerides Level 71, Cholesterol Level 166, LDL Cholesterol Direct 123, VLDL Cholesterol 14, HDL Cholesterol 43 Laboratory Tests 09/22/22 09:35 09/23/22 04:38 A/P: Assessment: Chest discomfort, probably musculoskeletal (now resolved) - no evidence of ACS: Troponin 0.035, <0.028. <0.28 (first minimal elevation probably lab error) - serial ECGs w/o evidence of myocardial ischemia or infarction Mild aortic root enlargement - Echocardiogram on 11/23/[address] Chavira which showed normal LV size and function with an EF of 55-60 percent. Mild concentric LVH is noted. There is mild RV enlargement. Normal RV function. There is mild dilated aortic root with diameter of 4.26 cm. There is no significant valvular heart disease. - CT angiography done 11/23/[address] Chavira showed maximum ascending aorta diameter of 4.1 cm - Echo of 08-03-21: LVEF 55-60%; mild AoR; PASP 30-35mmHg. mod aortic root and ascending aorta enlargement - CTA of the chest from 08-26-21: A root dilatation 4.1 cm at the sinotubular junction without mural hemorrhage dissection or rupture. Stable caliber of the ascending aorta arch and descending thoracic aortas which showed normal distal tapering. No acute pathology HTN with component of white coat HTN - fair control - MPI 08-04-21 showed No evidence of any significant myocardial ischemia or infarction on this study. Normal regional wall motion. Normal global left ventricular systolic function with a calculated ejection fraction of 62%. Plan: * Cardiac status stable and no evidence of ACS. Discussed with him. He feels well and wishes to go home * Outpt f/u advised Clinical Quality Measures AMI/AHF: ASA po Prior to arrival: MILA Baptiste MD FACP FAC CCDS Sep 23, 2022 13:07
== END 2022-09-23 10:29 | disposition home or self-care (01) | DRG 282 ==
LOC: EDUNIT# 09:19 → ER 09:20 → CSD 11:18
PROVIDERS: ADMIT Family Medicine; ATTEND Family Medicine
DX: I21.4 Non-ST elevation (NSTEMI) myocardial infarction (principal); I10 Essential (primary) hypertension; E78.5 Hyperlipidemia, unspecified
CPT/HCPCS: 36415; 71045; 80048; 80053; 80061; 83690; 83735; 83880; 84484; 85025; 85027; 85379; 85610; 85730; 93005; 93041; 93306